=== PATIENT | male | born 1965 | race Two or more races ===

== ENCOUNTER 2024-01-27 13:30 | Emergency (ER) | payer OTHER ==
[~2024-01-27] VITALS: Ht 167.6 cm; Wt 78.3 kg
[2024-01-27 14:06] VITALS: BP 155/78
== END 2024-01-27 14:08 | disposition home or self-care (01) ==
LOC: ED 13:30
DX: S01.01XA Laceration without foreign body of scalp, initial encounter (principal); W29.8XXA Contact with other powered hand tools and household machinery, initial encounter
CPT/HCPCS: 99282

== ENCOUNTER 2025-02-13 11:45 | Emergency (ER) | payer BC ==
[~2025-02-13] VITALS: Ht 167.6 cm; Wt 90.4 kg
[2025-02-13] MEDS ORDERED: SODIUM CHLORIDE 0.9% 1,000 ML IV PRN (13:00)
[2025-02-13] MEDS ORDERED: diazePAM 10 MG/2 ML SYR IV ONE (13:00)
[2025-02-13] MEDS ORDERED: MECLIZINE HCL25 MG PO (14:10)
[2025-02-13 14:45] VITALS: BP 137/101
== END 2025-02-13 14:45 | disposition home or self-care (01) ==
LOC: ED 11:45
DX: R42 Dizziness and giddiness (principal)
CPT/HCPCS: 96374; 99283-25; J3360; J7030

== ENCOUNTER 2025-02-16 12:17 | Emergency (ER) | payer BC ==
[~2025-02-16] VITALS: Ht 167.6 cm; Wt 90.4 kg
--- OUTSIDE RECORDS SUMMARY | ~2025-02-16 | XMS | Continuity of Care Document ---
Demographics + + + | Address | [address] | | | [place] [address] | + + + | Preferred Language | Unknown | + + + | Marital Status | | + + + | Caodaism Affiliation | Unknown | + + + | Race | Unknown | + + + | Ethnic Group | or | + + + Author + + + | Author | [facility] | + + + | Organization | [facility] | + + + | Address | [address] | | | [place] [address] | + + + | Phone | | + + + Care Team Providers + + + + | Care Records Management Clerk Name | Role | Phone | + + + + Unavailable | Unavailable | + + + + Unavailable | Unavailable | + + + + Allergies and Intolerances + + + + + + | date | description | facility | reaction | severity | + + + + + + | 2025-02-13 | UNK | [facility] - | (no reaction) | (no severity) | | 00:00 | [facility] | | | | | | Hospital | | | + + + + + + Encounters No information. Functional Status No information. Immunizations No information. Medications + + + + | date | description | facility | + + + + | 2025-02-13 00:00 | MECLIZINE HCL | [facility] | | | | [facility] | + + + + Problems + + + + | date | description | facility | + + + + | 2025-02-13 00:00 | Vertigo | [facility] | | | | [facility] | + + + + Procedures No information. Results/Labs No information. Social History + + + + | date | description | facility | + + + + | (no date) | Unknown if ever smoked | [facility] [place] [facility] | | | | [facility] | + + + + Vital Signs + + + +---------+ | date | measurement | value | units | + + + +---------+ | 2025-02-13 00:00 | BMI | 32.2 | kg/m2 | + + + +---------+ | 2025-02-13 00:00 | BP_diastolic | 101 | mmHg | + + + +---------+ | 2025-02-13 00:00 | BP_systolic | 137 | mmHg | + + + +---------+ | 2025-02-13 00:00 | heart_rate | 59 | /min | + + + +---------+ | 2025-02-13 00:00 | height_metric | 167.64 | cm | + + + +---------+ | 2025-02-13 00:00 | height_standard | 66 | in | + + + +---------+ | 2025-02-13 00:00 | o2_saturation | 97 | % | + + + +---------+ | 2025-02-13 00:00 | respiration_rate | 16 | /min | + + + +---------+ | 2025-02-13 00:00 | temperature_metric | 37.28 | C | | | | | | + + + +---------+ | 2025-02-13 00:00 | | 99.1 | F | | | temperature_standar | | | | | d | | | + + + +---------+ | 2025-02-13 00:00 | weight_metric | 90.4 | kg | + + + +---------+ | 2025-02-13 00:00 | weight_standard | 199.3 | lb | + + + +---------+"
[~2025-02-16 12:17] MED LIST: MECLIZINE HCL25 MG PO
--- OUTSIDE RECORDS SUMMARY | 2025-02-16 12:24 | XMS ---
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 Jag has no Care Guidelines for this patient. Toby VISIT COUNT (12 MO.) 2 [facility] TOTAL 2 NOTE: Visits indicate total known visits. ED/C VISIT TRACKING (12 MO.) 02/16/2025 12:18 [facility]: Emergency COMPLAINT: - DIZZINESS 02/13/2025 11:46 [facility] [place] TYPE: Emergency COMPLAINT: - VERTIGO DIAGNOSES: - Dizziness and giddiness INPATIENT VISIT TRACKING (12 MO.) No inpatient visits to display in this time frame [id number]
[2025-02-16] MEDS ORDERED: SODIUM CHLORIDE 0.9% 1,000 ML IV PRN (13:15)
[2025-02-16 13:19] LABS: BASOPHILS 0.7 % (0.2-1.2); EOSINOPHILS 2.9 % (0.8-7.0); LYMPHOCYTES 22.0 % (21.8-53.1); MCH 31.6 PG (25.7-32.2); MCHC 34.8 g/dL (32.3-36.5); MCV 90.9 fL (79.0-92.2); MONOCYTES 6.5 % (5.3-12.2); NEUTROPHILS 67.6 % (34.0-67.9); RBC 5.50 M/uL (4.63-6.08)
[2025-02-16] MEDS ORDERED: SCOPOLAMINE 1 MG/3 DAYS PATCH 1 EACH TDSY TD ONE (13:30)
[2025-02-16 13:35] LABS: BLOOD/HGB, URINE TRACE-L (Negative); KETONE, URINE TRACE (Negative); LEUK ESTERASE, URINE NEGATIVE (negative); NITRITE, URINE NEGATIVE (negative)
[2025-02-16 13:39] LABS: ALT (SGPT) 28.0 U/L (14-59); AST (SGOT) 16.0 U/L (15-37); GLOMERULAR FILTRATION RATE,EST 98.0 mL/min (>60); PROTEIN, TOTAL 7.2 g/dL (6.4-8.2); UREA NITROGEN 12.0 mg/dL (7-18)
[2025-02-16 13:44] LABS: BACTERIA, URINE NONE SEEN /hpf (negative); CASTS, URINE NONE SEEN \\lpf; CRYSTALS, URINE NONE SEEN (0-1+); EPITHELIAL CELLS, URINE 0 /lpf (0-1+); REFLEX CULTURE, URINE No (No)
[2025-02-16 16:37] VITALS: BP 140/91
[2025-02-16] MEDS ORDERED: TRANSDERM-SCOP1 EACH TD (16:42)
[2025-02-16] MEDS ORDERED: SCOPOLAMINE 1 MG/3 DAYS PATCH 1 EACH TDSY TD SCH (16:45)
--- NOTE | 2025-02-16 22:49 | EKG ---
[facility] [address] [place] [address] Signed Normal sinus rhythm Normal ECG No previous ECGs available Confirmed by Debi Lopez MD () on 02/16/2025 10:49:28 PM Electronically Signed By: DEBI LOPEZ MD 02/16/25 2249 PATIENT NAME: MIKAYLA ROSSMICHELLE CARLOS Electrocardiogram DATE OF : 69 PHYSICIAN: DEBI LOPEZ MD REPORT #: [id number] REPORT IS CONFIDENTIAL AND NOT TO BE RELEASED WITHOUT AUTHORIZATION
[2025-02-19] MEDS ORDERED: SCOPOLAMINE 1 MG/3 DAYS PATCH 1 EACH TDSY TD SCH (09:00)
== END 2025-02-16 16:50 | disposition home or self-care (01) ==
LOC: ED 12:17
PROVIDERS: Emergency Medicine
DX: H81.399 Other peripheral vertigo, unspecified ear (principal)
CPT/HCPCS: 36415; 70551; 80053; 81001; 85025; 93005; 93010; 99284-25; J7030